=== PATIENT | male | born 1940 | race Caucasian/White ===

== ENCOUNTER 2017-07-21 19:03 | Emergency (ER) | payer MEDICARE, OTHER ==
[2017-07-21 19:34] VITALS: BP 152/81; PULSE 82; RESP 16; TEMP 99.7; O2SAT 98
== END 2017-07-21 21:00 | disposition home or self-care (01) ==
LOC: H.ER 19:03
DX: H93.11 Tinnitus, right ear (principal)

== ENCOUNTER 2018-05-31 09:25 | Emergency (ER) | payer MEDICARE, OTHER ==
[2018-05-31 09:55] VITALS: BMI 28.1
--- NOTE | 2018-05-31 11:14 | ED PDOC ---
Upper Extremity Pain/Injury Time Seen by Provider: 05/31/18 09:53 Chief Complaint (Nursing): Finger,Hand,&Wrist Chief Complaint (Provider): Finger,Hand,&Wrist History Per: Patient History/Exam Limitations: no limitations Onset/Duration Of Symptoms: Days Current Symptoms Are (Timing): Still Present Additional Complaint(s): 77 year old male with a past medical history of chronic kidney disease and hypertension who is presenting to the ED for evaluation of left wrist pain onset after fall 7 weeks ago. Patient states that he fell on outstretched hand but did not take any medications or see any doctor. He reports swelling and pain but admits that he is able to move the wrist. Patient offers no other medical complaints at this time. PMD: Nick Wu Past Medical History Reviewed: Historical Data, Nursing Documentation, Vital Signs Vital Signs: Last Vital Signs Temp 98.8 F 05/31/18 09:56 Pulse 50 L 05/31/18 09:56 Resp 18 05/31/18 09:56 BP 153/91 H 05/31/18 09:56 Pulse Ox 100 05/31/18 09:56 - Medical History PMH: HTN, Chronic Kidney Disease Denies: Fractures (FINGER AMPUTATION) - Surgical History Surgical History: No Surg Hx Other surgeries: left hand index finger amputation - Family History Family History: States: Unknown Family Hx - Social History Current smoker - smoking cessation education provided: No Alcohol: Social Drugs: Denies - Immunization History Hx Tetanus Toxoid Vaccination: No Hx Influenza Vaccination: Yes (2017) Hx Pneumococcal Vaccination: No - Home Medications Home Medications: Ambulatory Orders Medication Instructions Recorded RX: No Known Home Med 07/21/17 - Allergies Allergies/Adverse Reactions: Allergies Allergy/AdvReac Type Severity Reaction Status Date / Time No Known Allergies Allergy Verified 07/21/17 19:33 Review of Systems ROS Statement: Except As Marked, All Systems Reviewed And Found Negative Musculoskeletal: Positive for: Arm Pain, Hand Pain Physical Exam - Reviewed Nursing Documentation Reviewed: Yes Vital Signs Reviewed: Yes - Physical Exam Appears: Positive for: Well, Non-toxic, No Acute Distress Head Exam: Positive for: ATRAUMATIC, NORMAL INSPECTION, NORMOCEPHALIC Skin: Positive for: Normal Color, Warm, DRY Eye Exam: Positive for: EOMI Respiratory: Negative for: Respiratory Distress Pulses-Radial (L): 2+ Pulses-Radial (R): 2+ Extremity: Positive for: Normal ROM, Capillary Refill (normal ), Other (deformity and swelling of left wrist, mild tenderness to distal forearm and wrist, limited ROM of left wrist ) Neurologic/Psych: Positive for: Alert, Oriented - ECG O2 Sat by Pulse Oximetry: 100 (RA) Pulse Ox Interpretation: Normal - Progress Re-evaluation Time: 12:52 Condition: Re-examined, Improved Medical Decision Making Medical Decision Making: Time: 10:23 Impression: left wrist injury and pain Differentials: Most likely distal forearm or radius fracture colles fracture, smiths fracture, wrist fracture or dislocation Plan: --X-Ray Left wrist 1200 Xray reviewed: left ulnar styloid fracture 1250 Splint applied by health tech. Scribe Attestation: Documented by Enma Rose, acting as a scribe for Jaqueline Landis. Provider Scribe Attestation: All medical record entries made by the Scribe were at my direction and personally dictated by me. I have reviewed the chart and agree that the record accurately reflects my personal performance of the history, physical exam, medic al decision making, and the department course for this patient. I have also personally directed, reviewed, and agree with the discharge instructions and disposition Procedures - Time-Out Type of Procedure: Splinting Site of Procedure: Left forearm Correct Patient: Yes Correct Procedure: Yes Correct Site Marked: Yes X-Ray Marked: Yes Physician Name: liz - Splinting Location: Left forearm Hand-Made Type: orthoglass Splint: volar Pre-Proc Neuro Vasc Exam: normal Post-Proc Neuro Vasc Exam: normal Disposition - Clinical Impression Clinical Impression: Wrist fracture, left - Patient ED Disposition Is Patient to be Admitted: No Doctor Will See Patient In The: Office Counseled Patient/Family Regarding: Studies Performed, Diagnosis, Need For Followup - Disposition Referrals: Bolivar Adams III, MD [Staff Provider] - Disposition: Routine/Home Disposition Time: 12:55 Condition: GOOD Additional Instructions: CESILIA BEGUM, thank you for letting us take care of you today. Your provider was Jaqueline Landis MD and you were treated for LT HAND SWELLING. The emergency medical care you received today was directed at your acute symptoms. If you were prescribed any medication, please fill it and take as directed. It may take several days for your symptoms to resolve. Return to the Emergency Department if your symptoms worsen, do not improve, or if you have any other problems. Please contact your doctor or call one of the physicians/clinics you have been referred to that are listed on the Patient Visit Information form that is included in your discharge packet. Bring any paperwork you were given at discharge with you along with any medications you are taking to your follow up visit. Our treatment cannot replace ongoing medical care by a primary care provider outside of the emergency department. Thank you for allowing the [facility] team to be part of your care today. If you had an X-Ray or CT scan: A Radiologist will review the ED reading if any change in treatment is needed we will contact you. If you had a blood, urine, or wound culture: It will take several days for the results, if any change in treatment is needed we will contact you. If you had an STI test: It will take 48 hours for the results. Please call after 1 week if you have not heard back. Instructions: Wrist Fracture (DC) Print Language: [place]
--- NOTE | 2018-05-31 11:24 | RAD ---
Date of service: 05/31/2018 PROCEDURE: Left Wrist Radiographs. HISTORY: left wrist injury fall COMPARISON: None. FINDINGS: BONES: Nondisplaced ulnar styloid fracture. JOINTS: Joint space narrowing. SOFT TISSUES: Circumferential soft tissue swelling OTHER FINDINGS: None. IMPRESSION: Nondisplaced ulnar styloid fracture.
[2018-05-31 13:51] VITALS: BP 124/66; PULSE 62; RESP 16; TEMP 98.2
[2018-06-01 12:28] VITALS: O2SAT 100
== END 2018-05-31 13:08 | disposition home or self-care (01) ==
LOC: H.ER 09:25
DX: S62.92XA Unspecified fracture of left hand, initial encounter for closed fracture (principal); W19.XXXA Unspecified fall, initial encounter; Y92.89 Other specified places as the place of occurrence of the external cause; I12.9 Hypertensive chronic kidney disease with stage 1 through stage 4 chronic kidney disease, or unspecified chronic kidney disease

== ENCOUNTER 2018-07-13 09:55 | Observation (INO) | payer MEDICARE, OTHER ==
[2018-07-13 09:56] VITALS: BMI 28.1
--- NOTE | 2018-07-13 10:53 | ED PDOC ---
Syncope/Near Syncope/Dizziness Time Seen by Provider: 07/13/18 10:05 Chief Complaint (Nursing): Dizziness/Lightheaded Chief Complaint (Provider): Dizziness/Lightheaded History Per: Patient, Family (daughter) Onset/Duration Of Symptoms: Days (x2) Current Symptoms Are (Timing): Better Additional Complaint(s): 77 year old male with past medical history of chronic kidney disease, anemia, and hypertension, presents to the emergency department with complaints of dizziness and lightheadedness since yesterday. As per daughter, patient received a phone call from his primary doctor reporting that hemoglobin levels were low and that patient needs to go to ED for further evaluation. At present, patient states he feels okay, however, admits to having chest pain (resolved) and shortness of breath. Otherwise, he denies any dark stool or bleeding per rectum. PCP: Dr. Nick Wu Past Medical History Reviewed: Historical Data, Nursing Documentation, Vital Signs - Medical History PMH: HTN, Chronic Kidney Disease Denies: Fractures (FINGER AMPUTATION) - Family History Family History: States: Unknown Family Hx - Immunization History Hx Tetanus Toxoid Vaccination: No Hx Influenza Vaccination: Yes (2018) Hx Pneumococcal Vaccination: No - Home Medications Home Medications: Ambulatory Orders Medication Instructions Recorded amLODIPine [Norvasc] 2.5 mg PO DAILY 07/13/18 - Allergies Allergies/Adverse Reactions: Allergies Allergy/AdvReac Type Severity Reaction Status Date / Time No Known Allergies Allergy Verified 07/21/17 19:33 Review of Systems ROS Statement: Except As Marked, All Systems Reviewed And Found Negative Cardiovascular: Positive for: Chest Pain (resolved) Respiratory: Positive for: Shortness of Breath Gastrointestinal: Negative for: Melena, Other (bleeding per rectum) Neurological: Positive for: Dizziness (and lightheadedness) Physical Exam - Reviewed Nursing Documentation Reviewed: Yes Vital Signs Reviewed: Yes - Physical Exam Appears: Positive for: No Acute Distress Head Exam: Positive for: ATRAUMATIC, NORMAL INSPECTION, NORMOCEPHALIC Skin: Positive for: Pallor. Negative for: Normal Color Eye Exam: Positive for: Normal appearance, EOMI, PERRL ENT: Positive for: Normal ENT Inspection. Negative for: Pharyngeal Erythema Neck: Positive for: Normal, Supple Cardiovascular/Chest: Positive for: Regular Rate, Rhythm Respiratory: Positive for: Normal Breath Sounds. Negative for: Respiratory Distress Neurologic/Psych: Positive for: Alert, Oriented. Negative for: Motor/Sensory Deficits - Laboratory Results Result Diagrams: 07/13/18 10:40 07/13/18 10:40 Medical Decision Making Medical Decision Making: A/P: 77 year old male with CKD and HTN, presents with worsening anemia. Will check hemoglobin and consider transfusion. * Labs * EKG * CXR Time: 1115 --Case discussed with Dr. Mk Lemons who knows the patient well. Patent will placed for admission under Dr. Wu's service. Will defer to inpatient team for transfusion. Scribe Attestation: Documented by Miya Clarke, acting as a scribe for Alonso Rahman MD. Provider Scribe Attestation: All medical record entries made by the Scribe were at my direction and perso rafael dictated by me. I have reviewed the chart and agree that the record accurately reflects my personal performance of the history, physical exam, medical decision making, and the department course for this patient. I have also personally directed, reviewed, and agree with the discharge instructions and disposition. Disposition - Clinical Impression Clinical Impression: Anemia, Dizziness - Patient ED Disposition Is Patient to be Admitted: Yes Counseled Patient/Family Regarding: Studies Performed, Diagnosis - Disposition Disposition Time: 10:15 Condition: FAIR
[2018-07-13 11:05] LABS: BASO % 0.5 % (0.0-2.0); EOS # 0.2 K/uL (0.0-0.7); EOS % 3.1 % (0.0-4.0); HEMOGLOBIN 7.3 g/dL (12.0-18.0); LYMPH # 1.6 K/uL (1.0-4.3); LYMPH % 23.6 % (20.0-40.0); MEAN CORPUSCULAR HEMOGLOBIN 19.7 pg (27.0-31.0); MEAN CORPUSCULAR HGB CONC 30.8 g/dL (33.0-37.0); MEAN PLATELET VOLUME 7.9 fl (7.2-11.7); MONO # 0.7 K/uL (0.0-0.8); MONO % 10.4 % (0.0-10.0); NEUT # 4.2 K/uL (1.8-7.0); NEUT % 62.4 % (50.0-75.0); RBC 3.71 Mil/uL (4.40-5.90); RED CELL DISTRIBUTION WIDTH 17.7 % (11.5-14.5); WHITE BLOOD COUNT 6.8 K/uL (4.8-10.8)
[2018-07-13 11:13] LABS: BLOOD UREA NITROGEN 30 mg/dl (9-20); CALCIUM 9.2 mg/dL (8.4-10.2); GFR NON-AFRICAN AMERICAN 35; PROTHROMBIN TIME 11.8 Seconds (9.8-13.1)
--- NOTE | 2018-07-13 11:44 | RAD ---
Date of service: 07/13/2018 HISTORY: Dizziness, chest pain COMPARISON: No prior. FINDINGS: LUNGS: The lungs are well inflated and clear. PLEURA: No pleural effusions or pneumothorax. CARDIOVASCULAR: The heart is normal in size. No aortic atherosclerotic calcifications present. OSSEOUS STRUCTURES: Within normal limits for the patient's age. VISUALIZED UPPER ABDOMEN: Normal. OTHER FINDINGS: None. IMPRESSION: No active pulmonary disease.
--- NOTE | 2018-07-13 12:16 | CP.PCM.HP ---
History of Present Illness - History of Present Illness History of Present Illness: CC: miguelito been weak and had some bloody bowel movements last week 77 y/o male with a PMHx of HTN, CKD, hemorrhoids and newly diagnosed microcytic anemia presented to ER after being discovered to have worsening anemia at his PMD's office. He reports he had been feeling more fatigued with episodic exertional SOB for the past several weeks. He also reports having several bloody bowel movements that resolved last week. No associated CP/left arm/jaw pain. No N/V/D/C. Stool has returned to normal brown color as per pt. Reports having a c olonoscopy last year and as per pt was normal. No family hx of colon CA. Denies any melena/hematochezia this week. No episodes of syncope. First such episode. Previous H/H normal from last year. No other complaints/concerns. PMD: Dr. Roby Wu PMHx: HTN, CKD, anemia Meds: Norvasc 2.5mg QD ALL: NKDA PsurgHx: denies PHospHx: denies SocialHx: former smoker, denies ETOH/drug abuse FamilyHx: no hx of colon CA, mother with DM Next of Kin: Daughter, Breann, Code Status: full code Present on Admission - Present on Admission Any Indicators Present on Admission: No History of DVT/PE: No History of Uncontrolled Diabetes: No Urinary Catheter: No Decubitus Ulcer Present: No Review of Systems - Constitutional Constitutional: As Per HPI, Fatigue, Weakness. absent: Fever, Headache, Increased Appetite, Weight Loss - EENT Eyes: absent: Blind Spots, Blurred Vision, Change in Vision Ears: absent: Tinnitus Nose/Mouth/Throat: absent: Epistaxis, Nasal Congestion, Nasal Discharge, Odynophagia, Sore Throat - Cardiovascular Cardiovascular: Chest Pain. absent: Chest Pain at Rest, Claudication, Pain Radiating to Arm/Neck/Jaw, Leg Edema, Lightheadedness, Orthopnea, Palpitations, Paroxysmal Nocturnal Dyspnea, Pedal Edema, Rapid Heart Rate, Slow Heart Rate, Syncope - Respiratory Respiratory: Dyspnea, Dyspnea on Exertion. absent: Cough, Hemoptysis, Wheezing, Snoring, Stridor, Pain on Inspiration, Chest Congestion, Excessive Mucous Production - Gastrointestinal Gastrointestinal: Hematochezia. absent: Abdominal Pain, Belching, Bloating, Change in Bowel Habits, Change in Stool Character, Coffee Ground Emesis, Constipation, Diarrhea, Dyspepsia, Dysphagia, Early Satiety, Excessive Flatus, Hematemesis, Melena, Nausea - Genitourinary Genitourinary: absent: Hematuria - Musculoskeletal Musculoskeletal: absent: Abnormal Gait, Arthralgias, Back Pain - Integumentary Integumentary: absent: Rash - Neurological Neurological: absent: Abnormal Gait, Abnormal Movements, Abnormal Speech, Behavioral Changes, Lack of Coordination, Paresthesias, Tingling - Endocrine Endocrine: absent: Flushing - Hematologic/Lymphatic Hematologic: absent: Easy Bleeding, Easy Bruising, Lymphadenopathy Past Patient History - Past Medical History & Family History Past Medical History?: No Past Family History: Reviewed and not pertinent - Past Social History Smoking Status: Former Smoker Alcohol: None Drugs: Denies Home Situation {Lives}: With Family - CARDIAC Hx Hypertension: Yes - RENAL Hx Chronic Kidney Disease: Yes - MUSCULOSKELETAL/RHEUMATOLOGICAL Hx Fractures: No (FINGER AMPUTATION) - PSYCHIATRIC Hx Substance Use: No - SURGICAL HISTORY Hx Surgeries: Yes (SEE COMMENT) Hx Musculoskeletal Surgery: Yes (2nd digit amputation) Other/Comment: abscess drainage - ANESTHESIA Hx Anesthesia: Yes Hx Anesthesia Reactions: No Hx Malignant Hyperthermia: No Meds Allergies/Adverse Reactions: Allergies Allergy/AdvReac Type Severity Reaction Status Date / Time No Known Allergies Allergy Verified 07/21/17 19:33 Physical Exam - Constitutional Appears: Non-toxic, No Acute Distress - Head Exam Head Exam: ATRAUMATIC, NORMOCEPHALIC - Eye Exam Eye Exam: EOMI, Normal appearance, PERRL. absent: Scleral icterus - ENT Exam ENT Exam: Mucous Membranes Moist, Normal Exam - Neck Exam Neck exam: Positive for: Normal Inspection - Respiratory Exam Respiratory Exam: Clear to Auscultation Bilateral, NORMAL BREATHING PATTERN. absent: Rales, Rhonchi, Wheezes - Cardiovascular Exam Cardiovascular Exam: REGULAR RHYTHM, RRR, +S1, +S2. absent: Tachycardia, Irregular Rhythm, JVD, Systolic Murmur - GI/Abdominal Exam GI & Abdominal Exam: Normal Bowel Sounds, Soft. absent: Distended, Firm, Guarding, Mass, Rebound, Rigid, Tenderness - Rectal Exam Rectal Exam: Deferred - Extremities Exam Extremities exam: Positive for: normal capillary refill, normal inspection, pedal pulses present. Negative for: pedal edema, tenderness - Back Exam Back exam: NORMAL INSPECTION - Neurological Exam Neurological exam: Alert, CN II-XII Intact, Normal Gait, Oriented x3, Reflexes Normal - Psychiatric Exam Psychiatric exam: Normal Affect, Normal Mood - Skin Skin Exam: Dry, Intact, Normal Color, Warm Results - Vital Signs Recent Vital Signs: Last Vital Signs Temp 97.9 F 07/13/18 10:40 Pulse 67 07/13/18 10:40 Resp 18 07/13/18 10:40 BP 138/76 07/13/18 10:40 Pulse Ox 100 07/13/18 10:40 - Labs Result Diagrams: 07/13/18 10:40 07/13/18 10:40 Labs: Laboratory Results - last 24 hr 07/13/18 07/13/18 07/13/18 10:17 10:40 10:40 WBC 6.8 RBC 3.71 L Hgb 7.3 L Hct 23.8 L MCV 64.0 L MCH 19.7 L MCHC 30.8 L RDW 17.7 H Plt Count 292 MPV 7.9 Neut % (Auto) 62.4 Lymph % (Auto) 23.6 [place] % (Auto) 10.4 H Eos % (Auto) 3.1 Baso % (Auto) 0.5 Neut # (Auto) 4.2 Lymph # (Auto) 1.6 [place] # (Auto) 0.7 Eos # (Auto) 0.2 Baso # (Auto) 0.0 PT INR APTT Sodium 143 Potassium 4.5 Chloride 110 H Carbon Dioxide 25 Anion Gap 13 BUN 30 H Creatinine 1.9 H Est GFR ( Amer) 42 Est GFR (Non-Af Amer) 35 POC Glucose (mg/dL) 81 Random Glucose 92 Calcium 9.2 Troponin I < 0.0120 Blood Type Blood Type Confirm Antibody Screen Crossmatch BBK History Checked 07/13/18 07/13/18 07/13/18 10:40 10:40 11:18 WBC RBC Hgb Hct MCV MCH MCHC RDW Plt Count MPV Neut % (Auto) Lymph % (Auto) [place] % (Auto) Eos % (Auto) Baso % (Auto) Neut # (Auto) Lymph # (Auto) [place] # (Auto) Eos # (Auto) Baso # (Auto) PT 11.8 INR 1.0 APTT 34.0 Sodium Potassium Chloride Carbon Dioxide Anion Gap BUN Creatinine Est GFR ( Amer) Est GFR (Non-Af Amer) POC Glucose (mg/dL) Random Glucose Calcium Troponin I Blood Type O POSITIVE Blood Type Confirm O POSITIVE Antibody Screen Negative Crossmatch See Detail BBK History Checked No verified bt Assessment & Plan - Assessment and Plan (Free Text) Assessment: 77 y/o male with history of essential hypertension, chronic kidney disease of unknown etiology, hemorrhoids, admitted for symptomatic anemia. Plan: 1) Symptomatic Microcytic Anemia of Unknown Etiology -acute -hx of suspected rectal bleeding/hemorhoids -Iron studies, occult blood, retic count -type and screen, 2 units PRBCs -repeat H/H 4 hours post-transfusion -repeat AM labs -GI consult -Nephro consult 2) Chronic Kidney Disease Stage G3b -chronic -stable -IV fluid hydration -f/u AM labs -Nephro consult pending 3) Essential Hypertension -chronic -controlled -Norvasc 2.5mg 4) Diet -NPO 5) Prophylaxis -SCDs until GI bleed ruled out
[2018-07-13 15:50] LABS: IRON 19 ug/dL (49-181)
[2018-07-13 15:59] LABS: % IRON SATURATION 5 % (20-55); TOTAL IRON BINDING CAPACITY 388 ug/dL (250-450)
[2018-07-13 16:28] LABS: FERRITIN 5.6 ng/Ml (17.9-464)
--- NOTE | 2018-07-13 18:21 | CARD ---
APPROVED REPORT Date of service: 07/13/2018 EKG Measurement Heart [id number] <Conclusion> Sinus rhythm with premature atrial complexes Otherwise normal ECG
[2018-07-13 21:20] LABS: FOLATE 17.6 ng/mL
[2018-07-14] VITALS: RESP 18
[2018-07-14 05:20] LABS: HEMOGLOBIN 8.8 g/dL (12.0-18.0); MEAN CELL VOLUME 67.9 fl (80.0-94.0); MEAN CORPUSCULAR HEMOGLOBIN 21.4 pg (27.0-31.0); MEAN CORPUSCULAR HGB CONC 31.5 g/dL (33.0-37.0); RBC 4.1 Mil/uL (4.40-5.90); WHITE BLOOD COUNT 6.8 K/uL (4.8-10.8)
[2018-07-14 05:36] LABS: ALB/GLOB RATIO 1.1 (1.0-2.1); ALBUMIN 3.6 g/dL (3.5-5.0); CALCIUM 8.8 mg/dL (8.4-10.2)
--- NOTE | 2018-07-14 11:30 | CP.PCM.PN ---
Subjective - Date & Time of Evaluation Date of Evaluation: 07/14/18 Time of Evaluation: 11:29 - Subjective Subjective: no overnight events Objective - Vital Signs/Intake and Output Vital Signs (last 24 hours): Temp Pulse Resp BP Pulse Ox 98.2 F 72 18 146/78 98 07/14/18 07:44 07/14/18 11:04 07/14/18 07:44 07/14/18 11:04 07/14/18 07:44 Intake and Output: 07/14/18 07/14/18 06:59 18:59 Intake Total 325 Balance 325 - Medications Medications: Current Medications Amlodipine Besylate (Norvasc) 2.5 mg PO DAILY YVETTE Last Admin: 07/14/18 11:04 Dose: 2.5 mg - Labs Labs: 07/14/18 04:25 07/14/18 04:25 PT 11.8 Seconds (9.8-13.1) 07/13/18 10:40 INR 1.0 07/13/18 10:40 APTT 34.0 Seconds (25.6-37.1) 07/13/18 10:40 - Head Exam Head Exam: NORMOCEPHALIC - Respiratory Exam Respiratory Exam: Clear to Ausculation Bilateral - Cardiovascular Exam Cardiovascular Exam: REGULAR RHYTHM - GI/Abdominal Exam GI & Abdominal Exam: Soft, Normal Bowel Sounds Assessment and Plan - Assessment and Plan (Free Text) Assessment: 77 yo male with anemia no bleeding hgb stabl elective endoscopic work up
[2018-07-14 11:45] VITALS: BP 129/65; PULSE 81; TEMP 97.6; O2SAT 97
--- NOTE | 2018-07-14 12:57 | CP.PCM.DIS ---
Provider - Provider Date of Admission: 07/13/18 10:11 Attending physician: Nick Wu MD Consults: 07/13/18 11:53 Nephrology Consult Stat Comment: Consulting Provider: Ryder Hill Consulting Physician: Ryder Hill Reason for Consult: CKD of unknown etiology, anemia 07/13/18 11:54 Gastroenterology Consult Stat Comment: Consulting Provider: Gustavo Garsia Consulting Physician: Gustavo Garsia Reason for Consult: iron deficiency anemia, hx of rectal bleeding Time Spent in preparation of Discharge (in minutes): 35 Hospital Course - Lab Results Lab Results: Most Recent Lab Values WBC 6.8 K/uL (4.8-10.8) 07/14/18 04:25 RBC 4.10 Mil/uL (4.40-5.90) L 07/14/18 04:25 Hgb 8.8 g/dL (12.0-18.0) L 07/14/18 04:25 Hct 27.8 % (35.0-51.0) L 07/14/18 04:25 MCV 67.9 fl (80.0-94.0) L D 07/14/18 04:25 MCH 21.4 pg (27.0-31.0) L 07/14/18 04:25 MCHC 31.5 g/dL (33.0-37.0) L 07/14/18 04:25 RDW 20.0 % (11.5-14.5) H 07/14/18 04:25 Plt Count 279 K/uL (130-400) 07/14/18 04:25 MPV 7.9 fl (7.2-11.7) 07/13/18 10:40 Neut % (Auto) 62.4 % (50.0-75.0) 07/13/18 10:40 Lymph % (Auto) 23.6 % (20.0-40.0) 07/13/18 10:40 [place] % (Auto) 10.4 % (0.0-10.0) H 07/13/18 10:40 Eos % (Auto) 3.1 % (0.0-4.0) 07/13/18 10:40 Baso % (Auto) 0.5 % (0.0-2.0) 07/13/18 10:40 Neut # (Auto) 4.2 K/uL (1.8-7.0) 07/13/18 10:40 Lymph # (Auto) 1.6 K/uL (1.0-4.3) 07/13/18 10:40 [place] # (Auto) 0.7 K/uL (0.0-0.8) 07/13/18 10:40 Eos # (Auto) 0.2 K/uL (0.0-0.7) 07/13/18 10:40 Baso # (Auto) 0.0 K/uL (0.0-0.2) 07/13/18 10:40 Retic Count 1.4 % (0.5-1.5) 07/13/18 15:30 PT 11.8 Seconds (9.8-13.1) 07/13/18 10:40 INR 1.0 07/13/18 10:40 APTT 34.0 Seconds (25.6-37.1) 07/13/18 10:40 Sodium 144 mmol/l (132-148) 07/14/18 04:25 Potassium 4.5 MMOL/L (3.6-5.0) 07/14/18 04:25 Chloride 111 mmol/L (98-107) H 07/14/18 04:25 Carbon Dioxide 25 mmol/L (22-30) 07/14/18 04:25 Anion Gap 13 (10-20) 07/14/18 04:25 BUN 30 mg/dl (9-20) H 07/14/18 04:25 Creatinine 1.8 mg/dl (0.8-1.5) H 07/14/18 04:25 Est GFR ( Amer) 45 07/14/18 04:25 Est GFR (Non-Af Amer) 37 07/14/18 04:25 POC Glucose (mg/dL) 81 mg/dL (65-110) 07/13/18 10:17 Random Glucose 111 mg/dL (75-110) H 07/14/18 04:25 Calcium 8.8 mg/dL (8.4-10.2) 07/14/18 04:25 Iron 19 ug/dL (49-181) L 07/13/18 15:30 TIBC 388 ug/dL (250-450) 07/13/18 15:30 % Saturation 5 % (20-55) L 07/13/18 15:30 Ferritin 5.6 ng/Ml (17.9-464) L 07/13/18 15:30 Total Bilirubin 0.4 mg/dl (0.2-1.3) 07/14/18 04:25 AST 21 U/L (17-59) 07/14/18 04:25 ALT 21 U/L (21-72) 07/14/18 04:25 Alkaline Phosphatase 60 U/L (38-126) 07/14/18 04:25 Troponin I < 0.0120 ng/mL (0.00-0.120) 07/13/18 10:40 Total Protein 6.9 G/DL (6.3-8.2) 07/14/18 04:25 Albumin 3.6 g/dL (3.5-5.0) 07/14/18 04:25 Globulin 3.3 gm/dL (2.2-3.9) 07/14/18 04:25 Albumin/Globulin Ratio 1.1 (1.0-2.1) 07/14/18 04:25 Vitamin B12 392 pg/mL (239-931) 07/13/18 15:30 Folate 17.6 ng/mL 07/13/18 15:30 U Random Total Protein 24 mg/L 07/13/18 16:30 Urine Creatinine 88 mg/dL (20-320) 07/13/18 16:00 Urine Microalbumin 9.6 mg/dL 07/13/18 16:00 Microalb/Creat Ratio 109 (<30) H 07/13/18 16:00 Blood Type O POSITIVE 07/13/18 10:40 Blood Type Confirm O POSITIVE 07/13/18 11:18 Antibody Screen Negative 07/13/18 10:40 Crossmatch See Detail 07/13/18 10:40 BBK History Checked No verified bt 07/13/18 10:40 - Hospital Course Hospital Course: 77 y/o male with history of essential hypertension, chronic kidney disease of unknown etiology, hemorrhoids, was admitted for symptomatic anemia. 1) Symptomatic Microcytic Anemia of Unknown Etiology -transfused 2 units blood, Hemoglobin up from 7.3 to 8.8, MCV now 67.0 -B12/Folate WNL -iron studies showed very depleted stores -post transfusion, pt received one unit of Venofer -GI was consulted, did not plan any inhouse intervention, will follow pt outpatient -pt was transfused two units and reports feeling much better and stronger post transfusion -after an uneventful hospital course, the pt was discharged in stable condition. Discharge Exam - Head Exam Head Exam: NORMOCEPHALIC - Eye Exam Eye Exam: EOMI. absent: Scleral icterus Pupil Exam: PERRL - ENT Exam ENT Exam: Mucous Membranes Moist - Respiratory Exam Respiratory Exam: Clear to PA & Lateral, NORMAL BREATHING PATTERN, UNREMARKABLE. absent: Rales, Rhonchi, Wheezes - Cardiovascular Exam Cardiovascular Exam: REGULAR RHYTHM, RRR, +S1, +S2. absent: Tachycardia, Gallop, JVD, Rubs, Systolic Murmur - GI/Abdominal Exam GI & Abdominal Exam: Normal Bowel Sounds, Soft, Unremarkable. absent: Distended, Firm, Guarding, Hernia, Mass, Tenderness - Extremities Exam Extremities exam: normal capillary refill, pedal pulses present - Neurological Exam Neurological exam: Alert, CN II-XII Intact, Normal Gait, Oriented x3, Reflexes Normal - Skin Skin Exam: Dry, Intact, Warm Discharge Plan - Discharge Medications Prescriptions: Ascorbic Acid [Vitamin C] 1,000 mg PO DAILY #30 tablet Docusate Sodium [Colace] 100 mg PO DAILY #30 capsule Ferrous Sulfate 325 mg PO DAILY #60 tablet - Follow Up Plan Condition: STABLE Disposition: HOME/ ROUTINE Patient education suggested?: Yes Instructions: Anemia Caused by Low Iron, Anemia of Chronic Disease Additional Instructions: take medications as prescribed maintain good hydration with water follow up with nephrology on Tuesday 07/18 as scheduled schedule follow up with GI follow up with Dr. Wu in 1-2 weeks any uncontrolled bleeding, or return of weakness/dizziness/palpitations/SOB please return to ED for evaluation Referrals: Gustavo Garsia MD, PhD [Staff Provider] - Nick Wu MD [Family Provider] - Ryder Hill MD [Staff Provider] -
--- NOTE | 2018-07-14 20:47 | CON ---
DATE: 07/13/2018 REFERRING PHYSICIAN: Dr. Wu. HISTORY OF PRESENT ILLNESS: This is a pleasant 77-year-old male with history of hypertension, CKD, hemorrhoids, and newly diagnosed anemia. The patient has no evidence of bleeding and no hematemesis or hematochezia. Does not remember when the last colonoscopy was. Currently lying in bed comfortably in no apparent distress. PAST MEDICAL HISTORY: As above. PAST SURGICAL HISTORY: As above. MEDICATIONS: Have been reviewed. REVIEW OF SYSTEMS: All other systems have been reviewed and negative apart from the HPI. PHYSICAL EXAMINATION: GENERAL: Pleasant elderly male, lying in bed comfortably, in no apparent distress. VITAL SIGNS: Here in the hospital are grossly unremarkable. HEENT: Head: Normocephalic and atraumatic. Eyes: Pupils equally reactive to light bilaterally. No conjunctival pallor or icterus. NECK: Supple. Normal range of motion. No lymphadenopathy appreciated. LUNGS: Coarse breath sounds bilaterally. HEART: S1 and S2. Regular rate and rhythm. No S3. ABDOMEN: Soft, nontender. Bowel sounds present. No rebound. No guarding. RECTAL: Deferred. EXTREMITIES: Pulses felt bilaterally. SKIN: Warm, dry, and intact. NEUROLOGIC: A and O x3. LABORATORY DATA: Labs and radiology have been reviewed. WBC is 6.8, hemoglobin is 7.3, hematocrit 23, platelet count is normal at 292. INR 1. LFTs are essentially unremarkable. ASSESSMENT AND PLAN: This is a 77-year-old male with chronic anemia, history of [id number] renal failure. No active evidence of bleeding. He will benefit from endoscopy and colonoscopy. We will benefit outpatient CAT scan as indicated. Transfuse as needed. We will follow the patient with you. Thank you for the consult. Gustavo Garsia MD/ PhD cc: Dr. Wu.
== END 2018-07-14 15:15 | disposition home or self-care (01) ==
LOC: H.ER 09:55 → H.ERHOLD 10:11 → H.TEL 18:09
PROVIDERS: ADMIT Family Medicine; ATTEND Family Medicine
DX: D50.9 Iron deficiency anemia, unspecified (principal); I12.9 Hypertensive chronic kidney disease with stage 1 through stage 4 chronic kidney disease, or unspecified chronic kidney disease; N18.9 Chronic kidney disease, unspecified; Z87.891 Personal history of nicotine dependence; K64.9 Unspecified hemorrhoids; Z79.899 Other long term (current) drug therapy; R42 Dizziness and giddiness
CPT/HCPCS: 36415; 36430; 71045; 80048; 80053; 82043; 82570; 82607; 82728; 82746; 82948; 83540; 83550; 84156; 84484; 85025; 85027; 85044; 85610; 85730; 86850; 86900; 86920; 93005; 99285; G0378; J1756; P9051

== ENCOUNTER 2018-09-04 08:05 | Day surgery (SDC) | payer MEDICARE, OTHER ==
[2018-09-04 08:35] VITALS: BMI 24.3
[2018-09-04] MEDS ORDERED: Lactated Ringer's 500 ML IV ONE ×2 (08:45→11:16)
[2018-09-04] MEDS ORDERED: Midazolam 2 MG/2 ML VIAL ONE (10:41)
[2018-09-04] MEDS ORDERED: Propofol 10 mg/ml Inj (20 ML) ONE (10:42)
[2018-09-04 11:26] VITALS: TEMP 98
[2018-09-04 11:50] VITALS: BP 106/59; PULSE 82; RESP 18; O2SAT 97
== END 2018-09-04 12:34 | disposition home or self-care (01) ==
LOC: H.ENDO 08:05
PROVIDERS: ATTEND Internal Medicine Gastroenterology
DX: K64.8 Other hemorrhoids (principal); D50.9 Iron deficiency anemia, unspecified; K57.30 Diverticulosis of large intestine without perforation or abscess without bleeding; I10 Essential (primary) hypertension; K29.50 Unspecified chronic gastritis without bleeding; M19.90 Unspecified osteoarthritis, unspecified site; Z87.891 Personal history of nicotine dependence
CPT/HCPCS: 43239; 45378; 88305; J2001; J2250; J2704; J7120